=== PATIENT | female | born 1970 | race Caucasian/White ===

== ENCOUNTER 2017-03-03 13:39 | Emergency (ER) | payer BC, OTHER ==
[~2017-03-03] VITALS: Ht 162.6 cm; Wt 87.0 kg
[~2017-03-03 13:39] MED LIST: MECL-62 PO
[2017-03-03 13:44] VITALS: BP_SYST 147; BP_SYST 82; BP_DIAS 103; BP_DIAS 82; PULSE 103; PULSE 16; RESP 16; TEMP 98.4; O2SAT 100
[2017-03-03] MEDS ORDERED: MULTTAB67 PO (13:58)
[2017-03-03] MEDS ORDERED: IBUP-1129 PO (13:58)
[2017-03-03] MEDS ORDERED: VIST25CA PO (14:24)
--- NOTE | 2017-03-03 14:24 | PD ---
HPI Chief Complaint: Anxiety Time Seen by Provider: 14:06 Travel History International Travel<30 days: No Contact w/Intl Traveler<30days: No Traveled to known affect area: No History of Present Illness HPI 46-year-old female complains of panic attack. Patient has history of recurrent panic attack in the past. Patient was seen by personal physician several years ago and put on Zoloft. Patient stopped taking Zoloft on her own subsequently. Patient states that she started having several panic attack this morning. Patient denies any alcohol or drug abuse. Patient states that during a panic attack she has numbness tingling sensation of extremity and epigastric discomfort. Patient is feeling better now in the ED. Patient denies any medical problem. Patient is not on any routine medication. Patient denies any chance of being . PFSH Past Medical History Anxiety: Yes Diminished Hearing: No GERD: Yes Musculoskeletal: Yes (scoliosis jeck pain) Psychiatric: Yes (panic attacks) Immunizations Current: Yes Tetanus Vaccination: < 5 Years Influenza Vaccination: No ?: Not LMP: 02-27-17 Past Surgical History Gynecologic Surgery: Yes (leep cone) Social History Alcohol Use: Yes (2-3) Tobacco Use: Yes (1 PPD) Substance Use: No Allergies-Medications (Allergen,Severity, Reaction): Coded Allergies: Sulfa (Verified Adverse Reaction, Severe, anxious, 03/03/17) Reported Meds & Prescriptions Reported Meds & Active Scripts Active Reported Motrin Ib (Ibuprofen) 200 Mg Tablet 400 Mg PO DIRECTED Multiple Vitamin 1 Tab 1 Tab PO DAILY Review of Systems General / Constitutional: No: Fever Eyes: No: Visual changes HENT: No: Headaches Cardiovascular: No: Chest Pain or Discomfort Respiratory: No: Shortness of Breath Gastrointestinal: No: Abdominal Pain Genitourinary: No: Dysuria Musculoskeletal: No: Pain Skin: No Rash Neurologic: No: Weakness Psychiatric: No: Depression Endocrine: No: Polydipsia Hematologic/Lymphatic: No: Easy Bruising Physical Exam Narrative GENERAL: Well-nourished, well-developed patient. SKIN: Focused skin assessment warm/dry. HEAD: Normocephalic. EYES: No scleral icterus. No injection or drainage. NECK: Supple, trachea midline. No JVD or lymphadenopathy. CARDIOVASCULAR: Regular rate and rhythm without murmurs, gallops, or rubs. RESPIRATORY: Breath sounds equal bilaterally. No accessory muscle use. GASTROINTESTINAL: Abdomen soft, non-tender, nondistended. MUSCULOSKELETAL: No cyanosis, or edema. BACK: Nontender without obvious deformity. No CVA tenderness. Neurologic exam normal. Data Data Last Documented VS Vital Signs Date Time Temp Pulse Resp B/P Pulse Ox O2 Delivery O2 Flow Rate FiO2 03/03/17 13:44 98.4 103 16 147/82 100 MDM Medical Decision Making Medical Screen Exam Complete: Yes Emergency Medical Condition: Yes Differential Diagnosis Differential diagnosis including anxiety panic attack, adjustment disorder. Narrative Course 46-year-old female with recurrent panic attack. Diagnosis Primary Impression: Panic attack Patient Instructions: General Instructions Additional Instructions: Vistaril as needed. Follow-up local physician. Return if worse. Med/Other Pt SpecificInfo: Prescription(s) given Scripts Hydroxyzine Pamoate (Vistaril)25 Mg Cap25 Mg PO TID PRN (ANXIETY) #30 CAP Ref 0 Prov:Deandre Walton MD 03/03/17 Disposition: 01 DISCHARGE HOME Condition: Stable Deandre Walton MD Mar 03, 2017 14:24
[2017-03-03 14:46] VITALS: BP 118/68
== END 2017-03-03 14:51 | disposition home or self-care (01) ==
LOC: PHED 13:39
DX: F41.0 Panic disorder [episodic paroxysmal anxiety] (principal)
CPT/HCPCS: 99283

== ENCOUNTER 2017-06-06 13:26 | Emergency (ER) | payer BC ==
[~2017-06-06] VITALS: Ht 162.6 cm; Wt 61.5 kg
[~2017-06-06 13:26] MED LIST changes: +IBUP-1129 PO; -MECL-62 PO; +MULTTAB67 PO; +VIST25CA PO
[2017-06-06 13:32] VITALS: BP 148/71; PULSE 89; RESP 16; TEMP 98.6; O2SAT 99
[2017-06-06] MEDS ORDERED: LORA-373 PO (13:37)
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
[2017-06-06 13:59] LABS: AUTOMATED NEUTROPHIL # 4.7 TH/MM3 (1.8-7.7); BASOPHIL # 0.1 TH/MM3 (0-0.2); EOSINOPHIL % 0.4 % (0.0-4.0); HEMATOCRIT 31.9 % (35.0-46.0); HEMO FLAGS DIFF FINAL; LYMPH % 15.7 % (9.0-44.0); MEAN CELL VOLUME 82.1 FL (80.0-100.0); MEAN CORPUSCULAR HGB CONC 32.9 % (32.0-36.0); MONO % 6.2 % (0.0-8.0); NEUT % 75.7 % (16.0-70.0); PLATELET COUNT 189 TH/MM3 (150-450); RED BLOOD COUNT 3.89 MIL/MM3 (4.00-5.30); RED CELL DISTRIBUTION WIDTH 16.3 % (11.6-17.2); WHITE BLOOD COUNT 6.2 TH/MM3 (4.0-11.0)
[2017-06-06 14:05] LABS: CHLORIDE 105 MEQ/L (98-107); POTASSIUM 3.2 MEQ/L (3.5-5.1); SODIUM (NA) 139 MEQ/L (136-145)
[2017-06-06 14:08] LABS: ANION GAP 7 MEQ/L (5-15); BICARBONATE 26.9 MEQ/L (21.0-32.0); BLOOD UREA NITROGEN 12 MG/DL (7-18)
[2017-06-06 14:11] LABS: ALT (GPT) 19 U/L (10-53); AST (GOT) 16 U/L (15-37); GLOMERULAR FILTRATION RATE 110 ML/MIN (>89)
[2017-06-06 14:13] LABS: TOTAL BILIRUBIN ADULT 0.3 MG/DL (0.2-1.0)
[2017-06-06 14:14] LABS: ALKALINE PHOSPHATASE 43 U/L (45-117)
[2017-06-06] MEDS ORDERED: POTASSIUM CHLORIDE 10 MEQ CONTROLLED RELEASE TAB PO ONE (14:30)
[2017-06-06 14:54] VITALS: BP 125/73; PULSE 68; RESP 16; O2SAT 98
--- NOTE | 2017-06-07 14:01 | EKG ---
Date Performed: 06/06/2017 Time Performed: 13:55:04 PTAGE: 47 years EKG: Sinus rhythm NORMAL ECG Compared to prior tracing no significant change PREVIOUS TRACING : 08/02/2016 13.38 DOCTOR: Andrews Willett Interpretating Date/Time 06/07/2017 14:00:04
== END 2017-06-06 15:05 | disposition home or self-care (01) ==
LOC: PHED 13:26
DX: J40 Bronchitis, not specified as acute or chronic (principal); F17.210 Nicotine dependence, cigarettes, uncomplicated; K21.9 Gastro-esophageal reflux disease without esophagitis
CPT/HCPCS: 80053; 84484; 85025; 93005

== ENCOUNTER 2017-07-29 11:37 | Emergency (ER) | payer BC ==
[~2017-07-29] VITALS: Ht 162.6 cm; Wt 61.5 kg
[~2017-07-29 11:37] MED LIST changes: -IBUP-1129 PO; +LORA0.5T PO; -VIST25CA PO
[2017-07-29] MEDS ORDERED: CITA20TA4 PO (11:45)
[2017-07-29] MEDS ORDERED: hydrOXYzine HCL 50 MG/ML VIAL IM ONE (11:45)
[2017-07-29 11:48] VITALS: BP_SYST 131; BP_DIAS 6; BP_DIAS 66; PULSE 72; RESP 16; TEMP 98.6; O2SAT 98
--- NOTE | 2017-07-29 12:03 | PD ---
HPI . Anxiety attack Chief Complaint: Anxiety Time Seen by Provider: 11:44 Travel History International Travel<30 days: No Contact w/Intl Traveler<30days: No Traveled to known affect area: No History of Present Illness HPI This patient presents with a chief complaint of an anxiety attack. She has a long history of same. She states that she had been taking Ativan when necessary anxiety attacks. Her primary care provider started her on a new, regularly scheduled medication 4 days ago. Her Ativan when necessary was stopped. She states that [place] about [place] hour [place] when she had a severe panic attack. She states that she did have Ativan on hand and did take that. She states that the Ativan along with regulating her breathing has markedly improved her symptoms. She states that her symptoms always start as a tingling sensation in her abdomen which spreads to involve her entire body. She gets lightheaded and dizzy. She states that her symptoms today were similar to her usual symptoms but that the symptoms seem worse causing her to call 911. However, her symptoms are now subsiding. PFSH Past Medical History Anxiety: Yes Diminished Hearing: No GERD: Yes Musculoskeletal: Yes (scoliosis jeck pain) Psychiatric: Yes (panic attacks) Immunizations Current: Yes Tetanus Vaccination: < 5 Years Influenza Vaccination: No ?: Not LMP: 07-20-17 Past Surgical History Gynecologic Surgery: Yes (leep cone) Social History Alcohol Use: Yes (1-2 NIGHT) Tobacco Use: Yes (10 cigs daily) Substance Use: No Allergies-Medications (Allergen,Severity, Reaction): Coded Allergies: Sulfa (Sulfonamide Antibiotics) (Unverified Adverse Reaction, Severe, anxious, 07/29/17) Reported Meds & Prescriptions Reported Meds & Active Scripts Active Reported Citalopram (Citalopram Hydrobromide) 20 Mg Tab 20 Mg PO DAILY Lorazepam 0.5 Mg Tab 1 Mg PO DIRECTED PRN Review of Systems Except as stated in HPI: all other systems reviewed are Neg Cardiovascular: No: Chest Pain or Discomfort Respiratory: No: Shortness of Breath Gastrointestinal: No: Nausea Neurologic: Positive: Dizziness, Paresthesia Psychiatric: Positive: Anxiety Physical Exam Narrative GENERAL: Patient is wearing sunglasses. She does not appear to be in any acute distress. SKIN: warm/dry. HEAD: Normocephalic. Atraumatic. EYES: Not visualized as she is wearing sunglasses. ENT: No nasal bleeding or discharge. Mucous membranes pink and moist. NECK: Trachea midline. Full range of motion without pain.. CARDIOVASCULAR: Regular rate and rhythm. RESPIRATORY: No accessory muscle use. Clear to auscultation. Breath sounds equal bilaterally. GASTROINTESTINAL: Abdomen soft. Nontender. Bowel sounds present. Nondistended. MUSCULOSKELETAL: No obvious deformities. NEUROLOGICAL: Awake and alert. No obvious cranial nerve deficits. Motor grossly within normal limits. Normal speech. PSYCHIATRIC: Appropriate mood and affect; insight and judgment normal. Data Data Last Documented VS Vital Signs Date Time Temp Pulse Resp B/P (MAP) Pulse Ox O2 Delivery O2 Flow Rate FiO2 07/29/17 11:48 98.6 72 16 131/66 (87) 98 Orders Orders Hydroxyzine Hcl Inj (Vistaril Inj) (07/29/17 11:45) [facility] Medical Decision Making Medical Screen Exam Complete: Yes Emergency Medical Condition: Yes Differential Diagnosis My differential diagnosis anxiety includes but is not limited to generalized anxiety disorder, depression, psychoses, drug abuse, alcohol abuse Narrative Course This patient presents for evaluation and treatment following an anxiety attack. She is asking if I can run any tests to find out why she has anxiety attacks. I have explained to her that there are no test to look for the etiology of anxiety attacks. The patient reports that she has been worked up ad nauseam for same. A Vistaril shot was offered but turned down. She states that her symptoms are spontaneously improving. She will be discharged home. Diagnosis Primary Impression: Panic attack Patient Instructions: General Instructions, Panic Attack (ED) Disposition: 01 DISCHARGE HOME Condition: Stable Shanell Quintanilla MD Jul 29, 2017 12:03
[2017-07-29 12:06] VITALS: BP 114/58
== END 2017-07-29 12:20 | disposition home or self-care (01) ==
LOC: PHED 11:37
DX: F41.0 Panic disorder [episodic paroxysmal anxiety] (principal); Z72.0 Tobacco use; Z86.59 Personal history of other mental and behavioral disorders; Z87.19 Personal history of other diseases of the digestive system; Z87.39 Personal history of other diseases of the musculoskeletal system and connective tissue
CPT/HCPCS: 99283